=== PATIENT | female | born 1950 | race Hispanic/Latino ===

== ENCOUNTER → 2017-07-07 | Outpatient (CLI) | payer MEDICARE ==
--- NOTE | 2017-07-07 18:26 | Diagnostic Imaging Report ---
PROCEDURE:X-RAY ABDOMEN - KUB COMPARISON:Patients [facility], CT, CT ABDOMEN/PELVIS WO, 06/03/2016, 10:31. Patients [facility], DX, ABDOMEN-1VIEW (KUB), 03/20/2017, 12:44. INDICATIONS:F/U OF RENAL STONE FINDINGS: Nonobstructive bowel gas pattern with large amount of retained stool predominantly in the transverse and descending colon, which partly obscures the renal shadows. No radiopaque densities project over the renal shadows, expected course of the ureters or bladder. A 2 mm radiopaque density projecting to the left of the L3 vertebral body corresponds to atherosclerotic calcification in the aorta on prior CT. No acute bony abnormalities. Degenerative changes in the lumbosacral spine. CONCLUSION: No radiopaque densities project over the renal shadows, expected course of the ureters or bladder. Jaime Ribera M.D. Dictated by: Jaime Ribera M.D. on 07/07/2017 at 18:26 Electronically approved by: Jaime Ribera M.D. on 07/07/2017 at 18:26
== END ==
LOC: RAD 13:42
PROVIDERS: ATTEND Urology
DX: N20.0 Calculus of kidney (principal)
CPT/HCPCS: 74018

== ENCOUNTER → 2017-10-07 | Outpatient (CLI) | payer MEDICARE ==
--- NOTE | 2017-10-07 15:20 | Diagnostic Imaging Report ---
PROCEDURE:X-RAY ABDOMEN - KUB COMPARISON:KUB dated 07/07/17 INDICATIONS:CALCULUS OF THE KIDNEY FINDINGS: Nonobstructive bowel gas pattern. Moderate to large colonic stool burden. No radiopaque densities project over the renal shadows, expected course of the ureters or bladder. Unchanged 2 mm radiopaque density projecting to the left of the L3 vertebral body is vacular as noted before. No acute bony abnormalities. Degenerative changes of the lumbosacral spine. Right femoral intramedullary delonte and screw fixation. Upper abdomen surgical clips are again seen. Clear lung bases. CONCLUSION: No definite evidence of nephrolithiasis. No significant interval change from prior exam. Dictated by: Mo Otero M.D. on 10/07/2017 at 15:23 Electronically approved by: Mo Otero M.D. on 10/07/2017 at 15:23
== END ==
LOC: RAD 14:13
PROVIDERS: ATTEND Urology
DX: N20.0 Calculus of kidney (principal)
CPT/HCPCS: 74018

== ENCOUNTER → 2018-04-15 | Outpatient (CLI) | payer MEDICARE ==
--- NOTE | 2018-04-15 12:50 | Diagnostic Imaging Report ---
Exam: Abdominal film Clinical History: Renal stones Comparison: 10/07/2017 DISCUSSION: No suspicious calcifications project over the renal shadows or expected ureteral courses. Pelvic phleboliths. Punctate calcifications in the left upper quadrant likely reflect splenic granulomata. Regional skeletal structures are intact. Surgical hardware in the proximal right femur. Bowel gas pattern is nonobstructive. No organomegaly. IMPRESSION: No plain film evidence of urolithiasis. Signed by: Dr. Malcolm Cruz M.D. on 04/15/2018 12:46 PM
== END ==
LOC: RAD 11:03
PROVIDERS: ATTEND Urology
DX: N20.0 Calculus of kidney (principal)
CPT/HCPCS: 74018

== ENCOUNTER → 2018-06-16 | Outpatient (CLI) | payer MEDICARE ==
--- NOTE | 2018-06-16 11:21 | Diagnostic Imaging Report ---
Radiographs of the right hip - 2 views. Radiographs of the right femur 2 views HISTORY: Pain COMPARISON: None available. FINDINGS: Bones: No acute displaced fracture. Patient is status post open reduction and internal fixation of a proximal right femur fracture. The surgical hardware is intact without evidence of failure or loosening. Osseous alignment is within normal limits. Joints: Scattered degenerative change. No osseous erosion. Soft tissues: The soft tissues appear unremarkable. IMPRESSION: Patient is status post open reduction and internal fixation of a proximal right femur fracture. The surgical hardware is intact without evidence of failure or loosening. Signed by: Dr. Cameron Ibarra M.D. on 06/16/2018 11:18 AM
--- NOTE | 2018-06-16 12:15 | Diagnostic Imaging Report ---
History:Contusion of scalp, initial encounter Comparison studies:None Technique: Axial images were obtained from the skull base to the vertex. Coronal and sagittal images reconstructed from the axial data. Intravenous contrast: None Dose modulation, iterative reconstruction, and/or weight based adjustment of the mA/kV was utilized to reduce the radiation dose to as low as reasonably achievable. Findings: Scalp/skull: Mild soft tissue swelling at the right parietal scalp. No fracture or other bone abnormality. Extra-axial spaces: No masses. No fluid collections. Brain sulci: Mildly prominent. Ventricles: Mild compensatory dilatation. No hydrocephalus. Parenchyma: Few hypodensities in the supratentorial white matter are small vessel ischemic changes. Mineralization of the bilateral globi pallidi. No masses, hemorrhage, acute or chronic cortical vascular insults. Sellar/suprasellar region: No abnormalities. Craniocervical junction: Patent foramen magnum. No Chiari one malformation. Incidental findings: Atherosclerotic calcifications in the carotid siphons and vertebral arteries . Mild mucosal thickening of the right maxillary and bilateral sphenoid sinuses. Bilateral cataract surgery changes. Impression: No acute intracranial abnormalities. Mild soft tissue swelling at the right parietal scalp without underlying fracture. Chronic findings: 1. Mild generalized volume loss. 2. Mild supratentorial white matter small vessel ischemic changes. Signed by: DR Aron Mayfield M.D. on 06/16/2018 12:12 PM
== END ==
LOC: CT 10:08
PROVIDERS: ATTEND Internal Medicine
DX: S72.144A Nondisplaced intertrochanteric fracture of right femur, initial encounter for closed fracture (principal); S00.03XA Contusion of scalp, initial encounter
CPT/HCPCS: 70450

== ENCOUNTER → 2019-01-06 | Outpatient (CLI) | payer MEDICARE ==
--- NOTE | 2019-01-06 13:19 | Diagnostic Imaging Report ---
Exam: KUB - 2 views Indication: Renal calculi Comparison: None Findings: No radiographically apparent calcifications overlying the expected distribution of the kidneys. Nonobstructive bowel gas pattern. Clip projects over the left upper quadrant. Status post right hip ORIF. Degenerative changes of the visualized spine, both hip joints, and pubic symphysis. Impression: No radiographically apparent renal calculi. Signed by: Sabrina Crawford MD on 01/06/2019 1:16 PM
== END ==
LOC: RAD 11:49
PROVIDERS: ATTEND Urology
DX: N20.0 Calculus of kidney (principal)
CPT/HCPCS: 74018

== ENCOUNTER → 2019-02-10 | Outpatient (CLI) | payer MEDICARE | LOC: MAMMO 11:43 | PROVIDERS: ATTEND Internal Medicine | DX: Z12.31 Encounter for screening mammogram for malignant neoplasm of breast (principal) | CPT/HCPCS: 77067 ==

== ENCOUNTER → 2021-02-11 | Outpatient (CLI) | payer MEDICARE | LOC: MAMMO 10:16 | PROVIDERS: ATTEND Internal Medicine | DX: Z12.31 Encounter for screening mammogram for malignant neoplasm of breast (principal) | CPT/HCPCS: 77067 ==